=== PATIENT | female | born 1940 ===

== ENCOUNTER → 2018-01-28 | Outpatient (CLI) | payer OTHER | END | disposition home or self-care (01) | LOC: EDBD 11:22 → RAD 11:22 | DX: M25.562 Pain in left knee (principal); M25.561 Pain in right knee ==

== ENCOUNTER 2018-04-13 08:44 | Outpatient (CLI) | payer OTHER | END 2018-04-13 09:14 | disposition home or self-care (01) | LOC: MRI 08:44 | DX: M25.562 Pain in left knee (principal); M17.12 Unilateral primary osteoarthritis, left knee; M23.92 Unspecified internal derangement of left knee | CPT/HCPCS: 73721 ==

== ENCOUNTER 2018-04-22 09:56 | Outpatient (CLI) | payer OTHER | END 2018-04-22 10:09 | disposition home or self-care (01) | LOC: NUCLEAR 09:56 | DX: M25.561 Pain in right knee (principal); Z96.651 Presence of right artificial knee joint | CPT/HCPCS: 78315; 78802; A9503; A9556 ==

== ENCOUNTER 2020-10-30 10:12 | Emergency (ER) | payer OTHER ==
[~2020-10-30] VITALS: Ht 152.4 cm; Wt 63.5 kg
[2020-10-30] MEDS ORDERED: PRILOSEC OTC20 MG PO (11:03)
[2020-10-30] MEDS ORDERED: METOPROLOL SUCC25 MG PO (11:03)
[2020-10-30] MEDS ORDERED: OLMESARTAN-HCT1 EAC1 PO (11:04)
[2020-10-30] MEDS ORDERED: TOLTERODINE TART4 MG PO (11:04)
[2020-10-30] MEDS ORDERED: LEVOXYL112 MCG PO (11:05)
[2020-10-30] MEDS ORDERED: FENOFIBRATE145 MG PO (11:05)
[2020-10-30] MEDS ORDERED: MONTELUKAST SODI4 M1 PO (11:05)
[2020-10-30] MEDS ORDERED: DULOXETINE HCL40 MG PO (11:05)
== END 2020-10-30 14:59 | disposition home or self-care (01) ==
LOC: ER 10:12
DX: M25.552 Pain in left hip (principal); M25.562 Pain in left knee; M54.5 Low back pain

== ENCOUNTER 2023-05-20 14:36 | Outpatient (CLI) | payer OTHER ==
[~2023-05-20 14:36] MED LIST: DULOXETINE HCL40 MG PO; FENOFIBRATE145 MG PO; LEVOXYL112 MCG PO; METOPROLOL SUCC25 MG PO; MONTELUKAST SODI4 M1 PO; OLMESARTAN-HCT1 EAC1 PO; PRILOSEC OTC20 MG PO; TOLTERODINE TART4 MG PO
== END 2023-05-20 14:40 | disposition home or self-care (01) ==
LOC: RAD 14:36
PROVIDERS: ATTEND Orthopaedic Surgery
DX: M54.50 Low back pain, unspecified (principal); M53.3 Sacrococcygeal disorders, not elsewhere classified

== ENCOUNTER 2024-11-10 09:11 | Outpatient (CLI) | payer OTHER | END 2024-11-10 09:12 | disposition home or self-care (01) | LOC: NUCLEAR 09:11 | DX: G30.9 Alzheimer's disease, unspecified (principal) | CPT/HCPCS: 78803; A9557 ==